=== PATIENT | male | born 1945 | race Caucasian/White ===

== ENCOUNTER → 2016-11-10 | Day surgery (SDC) | payer OTHER, BC, MEDICARE ==
[~2016-11-10] VITALS: Ht 175.3 cm; Wt 88.5 kg
[~2016-11-10] MED LIST: ASPIR 8181 MG PO; ATORVASTATIN CA80 MG PO; BUPROPION XL150 MG PO; CARDIZEM CD120 MG PO; CRESTOR20 M1 PO; DIOVAN80 MG PO; ELIQUIS5 MG PO; ESCITALOPRAM20 MG PO; FISH OIL CONC1000 MG PO; MULTIVITAMIN1 TAB PO; NAMENDA10 M2 PO; Theragran Vitamins PO; VITAMIN B1100 MG PO; VITAMIN D31000 IU PO; ZETIA10 MG PO
--- NOTE | 2016-11-10 11:59 | Operative Report ---
Operative/Inv Procedure Report Surgery Date: 11/10/16 Name of Procedure: Surgical procedure rasp exostosis and arthroplasty fifth digit right foot Pre-Operative Diagnosis: Preoperative diagnosis exostosis medial distal aspect fifth digit right foot Post-Operative Diagnosis: Postoperative diagnosis same Estimated Blood Loss: arsh Surgeon/Tank House Operator: GURDEEP BECERRIL DPM Anesthesia: local monitored anesthesi Operative/Procedure Note Note: The patient in a supine position a sterile drape performed up to including medial lateral malleolus. Then using a #15 scalpel blade a stab incision was made distal medial aspect fifth digit right foot down to bone and then using a small rasp removed exostosis on the medial distal aspect of the distal phalanx. Having completed that portion procedure 2 simple sutures were used to reapproximate skin edges. We turned our attention to the arthroplasty procedure fifth digit right foot and made an incision over the proximal interphalangeal joint fifth digit right foot. Using the using the 15 scalpel blade we made a incision over the proximal interphalangeal joint fifth digit right foot. Sensation or skin exposure exposing the tendon of the proximal interphalangeal joint fifth digit. Using a #15 scalpel and a transverse tenotomy reflected the tendon proximally delivering the head of the existing head of the proximal phalanx to the operative site. Now using Jasmyn oscillating saw the head of proximal phalanx into and then turned our attention to closure. Beginning with 4-0 Vicryl the tendon was reapproximated using 2 simple sutures of 4-0 Vicryl. Next using 5-0 Vicryl and continuous horizontal mattress suture to reapproximate skin edges. Having completed procedure well and a sterile dressing was applied to the fifth digit right foot as well as forefoot right foot. Finally Coban compression dressing was applied to the forefoot as well. Patient was then discharged from the OR stable vital signs. Upon discharge patient was given written and oral home care instructions including elevation right foot above level possible next 24 hours, the surgical shoe may fully weight-bear on his right foot has prescriptions for Percocet 5/325 one every 4 hours when necessary pain, piroxicam 20 mg 1 daily at dinnertime and Keflex 500 mg 1 every 6 hours 10 days. Patient was instructed to be seen on 11/13/[address] [place] [address]. Signed Gurdeep becerril DPM
== END ==
LOC: STS 09-08 07:00
DX: M20.41 Other hammer toe(s) (acquired), right foot (principal); M77.51 Other enthesopathy of right foot and ankle; M19.071 Primary osteoarthritis, right ankle and foot; I10 Essential (primary) hypertension; I48.91 Unspecified atrial fibrillation; Z79.01 Long term (current) use of anticoagulants
CPT/HCPCS: 88304; J0690; J2250

== ENCOUNTER → 2018-05-14 | Day surgery (SDC) | payer OTHER, BC, MEDICARE ==
[~2018-05-14] VITALS: Ht 175.3 cm; Wt 90.7 kg
--- NOTE | 2018-05-14 11:44 | Operative Report ---
Operative/Inv Procedure Report Surgery Date: 05/14/18 Name of Procedure: Cataract extraction with intraocular lens implantation right eye Pre-Operative Diagnosis: Age-related cataract right eye Post-Operative Diagnosis: Same Estimated Blood Loss: none Surgeon/Customer Greeter: Danny SHARIF,Floyd Gaytan Anesthesia: local monitored anesthesi Complications: None Operative/Procedure Note Note: Preoperatively the patient was noted to have 20/30 vision in the right eye with a decrease with glare testing down to 20/70. The risks, benefits, and alternatives to surgery were discussed at length with the patient. Informed consent was obtained. The patient was brought to the operating room where the right eye was prepped and draped in the normal sterile fashion. A speculum was placed on the right eye with good exposure. A stab incision was made using a paracentesis blade. Intracameral lidocaine was placed. Viscoelastic was used to form the anterior chamber. A clear corneal incision was made using keratome blade. A continuous curvilinear capsulorrhexis was made using a cystotome needle followed by Utrata forceps. There was no extension of the rhexis. Hydrodissection was performed using balanced salt solution. The cataract was removed using a stop and chop technique. Residual cortex was removed using coaxial irrigation and aspiration. The capsule was polished using irrigation and aspiration and the posterior capsule was cleaned using a balanced salt solution jet. There was no residual lens material inside the eye. The capsular bag was reformed using viscoelastic. An intraocular lens MX60E of power 23.0 was verified and confirmed. It was loaded into an injector and injected into the eye. The lens was placed entirely within the capsular bag. Viscoelastic was evacuated using irrigation and aspiration. The wounds were stromally hydrated and the eye filled to physiologic pressure using balanced salt solution. Intracameral cefuroxime was placed. Speculum was removed and a shield was placed on the eye. The patient was brought to the recovery area without incident. Instructions were given to follow-up the next day for routine postoperative care.
== END ==
LOC: STS 03:01
DX: H25.9 Unspecified age-related cataract (principal); I10 Essential (primary) hypertension; I48.91 Unspecified atrial fibrillation; Z79.01 Long term (current) use of anticoagulants; G47.33 Obstructive sleep apnea (adult) (pediatric)
CPT/HCPCS: J2250; V2632